=== PATIENT | female | born 1965 | race Caucasian/White ===

== ENCOUNTER 2016-10-27 13:06 | Inpatient (IN) | payer SELFPAY ==
--- NOTE | 2016-10-27 13:31 | PDOC ---
History of Present Illness - General History Source: Patient Exam Limitations: No Limitations - History of Present Illness Initial Comments: 10/27/16 13:35 The patient is a 51 year old female with a significant past medical history of deep vein thrombosis secondary to foot biopsy (01/23-10/24) who presents to the ED with left sided facial drooping for an hour. The patient reports she was getting her hair done when she noticed left sided facial drooping. She also reports left sided arm tingling and palpitations. She reports she took 3 85mg of baby aspirin with no relief. Patient reports she was on Xarelto from 01/23-10/24 secondary to the deep vein thrombosis but has not taken it since. Patient reports she recently traveled to [place] by car. Denies any weakness. Denies slurred speech. Denies changes in gait. Denies any other symptoms. Seen by provider at 13:25 <Kalin Cardoso - Last Filed: 10/27/16 15:05> <Ashu Dill - Last Filed: 10/27/16 15:23> - General Stated Complaint: LT SIDE NUMBNESS Time Seen by Provider: 10/27/16 13:28 Past History <Kalin Cardoso - Last Filed: 10/27/16 15:05> <Ashu Dill - Last Filed: 10/27/16 15:23> - Past Medical History Allergies/Adverse Reactions: Allergies Allergy/AdvReac Type Severity Reaction Status Date / Time No Known Allergies Allergy Verified 10/27/16 13:29 Home Medications: Ambulatory Orders Duloxetine HCl [Cymbalta] 30 mg PO DAILY 10/27/16 Oxycodone HCl [Oxaydo] 7.5 mg PO DAILY 10/27/16 Review of Systems - Review of Systems Able to Perform ROS?: Yes Comments:: 10/27/16 13:35 GENERAL/CONSTITUTIONAL: No fever or chills. No weakness. HEAD, EYES, EARS, NOSE AND THROAT: No change in vision. No ear pain or discharge. No sore throat. CARDIOVASCULAR: + palpitations. No chest pain or shortness of breath. RESPIRATORY: No cough, wheezing, or hemoptysis. GASTROINTESTINAL: No nausea, vomiting, diarrhea or constipation. GENITOURINARY: No dysuria, frequency, or change in urination. MUSCULOSKELETAL: No joint or muscle swelling or pain. No neck or back pain. SKIN: No rash NEUROLOGIC: + facial droop, arm tingling. No headache, vertigo, loss of consciousness ENDOCRINE: No increased thirst. No abnormal weight change. HEMATOLOGIC/LYMPHATIC: No anemia, easy bleeding, or history of blood clots. ALLERGIC/IMMUNOLOGIC: No hives or skin allergy. All Other Systems: Reviewed and Negative <Kalin Cardoso - Last Filed: 10/27/16 15:05> *Physical Exam - Vital Signs Last Vital Signs Temp Pulse Resp BP Pulse Ox 98.4 F 85 17 157/103 97 10/27/16 13:20 10/27/16 13:20 10/27/16 13:20 10/27/16 13:20 10/27/16 13:20 - Physical Exam Comments: 10/27/16 13:35 GENERAL: Awake, alert, and fully oriented, in no acute distress HEAD: No signs of trauma EYES: PERRLA, EOMI, sclera anicteric, conjunctiva clear ENT: Auricles normal inspection, hearing grossly normal, nares patent, oropharynx clear without exudates. Moist mucosa NECK: Normal ROM, supple, no lymphadenopathy, JVD, or masses LUNGS: Breath sounds equal, clear to auscultation bilaterally. No wheezes, and no crackles HEART: Regular rate and rhythm, normal S1 and S2, no murmurs, rubs or gallops ABDOMEN: Soft, nontender, normoactive bowel sounds. No guarding, no rebound. No masses EXTREMITIES: Normal range of motion, no edema. No clubbing or cyanosis. No cords, erythema, or tenderness NEUROLOGICAL:+ little bit of facial asymmetry, left side has a little bit of a droop, left leg is weaker than right. NIS Stroke Scale: 2. Normal speech, normal gait SKIN: Warm, Dry, normal turgor, no rashes or lesions noted. <Kalin Cardoso - Last Filed: 10/27/16 15:05> NIH Stroke Scale - Last Known Well Date/Time & Onset Date Last Known Well: 10/27/16 Time Last Known Well: 12:30 - Initial Evaluation Level of consciousness: Alert Ask patient the month and their age: Answers both correctly Ask patient to open & close eyes; make fist and let go: Obeys both correctly Best gaze (horizontal eye movement): Normal Visual field testing: No visual field loss Facial paresis (Show teeth/raise eyebrows/close eyes tight): Minor paralysis ( flattened nasolabial fold, asymmetry on smiling) Motor Function: Left Arm: Normal Motor Function: Right Arm: Normal (extends arm 90 (or 45) degrees for 10 seconds without drift Motor Function: Left Leg: Drift Motor Function: Right Leg: Normal (extends leg 30 degrees for 5 seconds without drift) Limb Ataxia: No ataxia Sensory(Use pinprick test arms,legs,trunk,face/side to side): Normal Best language (Describe picture, name items, read sentences): No Aphasia Dysarthria (read several words): Normal articulation Extinction and Inattention: No abnormality - Total Score NIH Stroke Scale Score: 2 <Ashu Dill - Last Filed: 10/27/16 15:23> Heart Score/ECG Review #1 10/27/16 14:40 Vent. rate 80 bpm MA interval 144 ms QRS duration 96 ms Normal sinus rhythm with sinus arrhythmia Low voltage QRS cannot rule out anterior infarct, age undetermined <Kalin Cardoso - Last Filed: 10/27/16 15:05> Critical Care Time/MDM Note - Medical Decision Making Note: 10/27/16 14:34 CT/HEAD CT (stroke) Impression: normal CT scan of the head. No evidence of cute intracranial pathology. Reported by: Chun Pereyra 10/27/16 15:05 RAD/CHEST X-RAY PORTABLE Impression: No acute pathology. No comparison studies. Reported by: Marco Alfonso <Kalin Cardoso - Last Filed: 10/27/16 15:05> - Medical Decision Making Note: 10/27/16 15:20 Patient's presentation and exam discussed with Neurology, Dr. Manley, No TPA in this case, with NIH Scale of 2, the risks outweigh the benefits. Case discussed with hospitalist, admit to telemetry. Patient had 3 aspirin at home. <Ashu Dill - Last Filed: 10/27/16 15:23> Discharge Disposition <Kalin Cardoso - Last Filed: 10/27/16 15:05> - Discharge Dispostion Admit: Yes <Ashu Dill - Last Filed: 10/27/16 15:23> - Diagnosis Cerebrovascular accident (CVA) Qualifiers: CVA mechanism: unspecified Qualified Code(s): I63.9 - Cerebral infarction, unspecified - Discharge Dispostion Condition at time of disposition: Unchanged/Unknown
[2016-10-27] MEDS ORDERED: SODIUM CHLORIDE 1,000 ML IV SCH ×2 (13:45→16:30)
[2016-10-27 13:47] LABS: BASOPHIL 0.7 % (0-2.0); EOSINOPHIL 6.1 % (0-4.5); MCH 26.3 pg (25.7-33.7); MCHC 32.3 g/dl (32.0-36.0); MEAN CELL VOLUME 81.3 fl (80-96); MEAN PLT VOLUME 7.9 fl (7.5-11.1); NEUTROPHILS 61.7 % (42.8-82.8); PLATELET COUNT 409 K/MM3 (134-434); RDW 16.8 % (11.6-15.6); WHITE BLOOD COUNT 14.7 K/mm3 (4.0-10.0)
[2016-10-27 14:09] LABS: ANION GAP 9 (8-16); BILIRUBIN,TOTAL 0.2 mg/dL (0.2-1.0); CALCIUM 8.8 mg/dL (8.5-10.1); CHOLESTEROL 185 mg/dL (50-200); CO2 27 mmol/L (21-32); CREATININE 0.6 mg/dL (0.55-1.02); GLUCOSE,RANDOM 103 mg/dL (74-106); SGOT/AST 18 U/L (15-37); SGPT/ALT 18 U/L (12-78); TOT PROT 6.9 g/dl (6.4-8.2)
[2016-10-27 14:11] LABS: ALK PHOS 121 U/L (45-117); TROPONIN I < 0.02 ng/ml (0.00-0.05)
[2016-10-27 14:27] LABS: LDL CHOLESTEROL (ONLY SJRH) 132 mg/dL (5-100)
[2016-10-27 14:35] LABS: INR 1.03 (0.82-1.09); PROTHROMBIN TIME (PATIENT) 11.3 SEC (9.98-11.88)
[2016-10-27 15:38] LABS: URINE APPEARANCE SLCLOUDY; URINE BILIRUBIN NEGATIVE (NEGATIVE); URINE COLOR YELLOW; URINE GLUCOSE (UA) NEGATIVE (NEGATIVE); URINE KETONE NEGATIVE (NEGATIVE); URINE NITRITE POSITIVE (NEGATIVE); URINE PROTEIN NEGATIVE (NEGATIVE); URINE UROBILINOGEN NEGATIVE E.U./dl (0.2-1.0)
[2016-10-27 15:43] LABS: URINE BLOOD 1+ (NEGATIVE); URINE LEUK ESTERASE 1+ (NEGATIVE)
[2016-10-27 15:45] LABS: URINE BACTERIA RARE /hpf (NONE SEEN); URINE MUCUS MANY; URINE RBC 2 /hpf (0-3); URINE WBC 13 /hpf (3-5)
--- NOTE | 2016-10-27 16:44 | PN ---
Teaching Attending Note Name of Resident: Dylan Torres ATTENDING PHYSICIAN STATEMENT I saw and evaluated the patient. I reviewed the resident's note and discussed the case with the resident. I agree with the resident's findings and plan as documented. SUBJECTIVE:51 year old female who is visiting from [place] presents after acute onset of left sided facial droop and left upper extremity numbness that occurred around 11:30 am while she was drying her hair. She reports frontal headache and dizziness. This was preceded by 2 days history of palpitations . She recently drove from [place] to [place] . Denies prior history of CVA or Afib PMH is significant for RLE DVT and benign tibial tumor. She completed 1 year course of Xarelto in 2016 . OBJECTIVE: Vital Signs Temperature 98.4 F 10/27/16 13:20 Pulse Rate 81 10/27/16 14:51 Respiratory Rate 20 10/27/16 14:51 Blood Pressure 123/94 10/27/16 14:51 O2 Sat by Pulse Oximetry (%) 100 10/27/16 14:51 Neuro exam remarkable for flattening of the left nasolabial fold . Motor strength 5/5 b/l CVS - RRR , No MRG RS CTA b/l Abnormal Lab Results 10/27/16 10/27/16 10/27/16 13:40 13:40 15:25 WBC 14.7 H RDW 16.8 H Eosinophils % 6.1 H Alkaline Phosphatase 121 H Albumin 3.0 L Total LDL Cholesterol 132 H HDL Cholesterol 39 L Urine Blood 1+ H Ur Leukocyte Esterase 1+ H ASSESSMENT AND PLAN: 1. Suspected acute CVA - not a candidate for TPA, NIH 2, minimal residual weakness, risk of bleeding overweights benefits . Considering prior history of DVT and palpitations will need to R/O afib and hypercoaguable state . - MRI -ASA -Statins -permissive HTN - Hypercoaguable workup - Echo - telemetry - LE dopplers 2. Leukocytosis- abnormal UA, asympthomatic - ua cultures 3. DVT PPX - Lovenox
--- NOTE | 2016-10-27 18:02 | HP ---
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 She states on friday morning she left from [place] and drove here to [place] and just arrived here early this morning. She states she has been having 2 days of "palpitations and feels like my heart is fluttering". She also states she has been having paresthesias of her fingers for ther past few days also. This morning she woke up around 9Am with a headache. She did have nausea wheich she attributes to the car ride. She denies fevers chilsl chest pain and shortness of breath. In the ED soraya michel was called and NIHSS at the time was 2 and after discussion between the ED and neurology they decided the risks outweigh the benefits for TPA. patient took 3 baby aspirins at home with no relief ER course was notable for: (1)Labs IVF EKG (2)CXR Head CT (3) Recent Travel:2 day acr ride from [place] to [place] PAST MEDICAL HISTORY:bilateral hip osteoarthritis right tibial large cell tumor fibromyalgia morbid obesity right leg DVT was on Xarelto for 9 months stopped 1 year ago on 10/2015 PAST SURGICAL HISTORY:Cholecystectomy 2003 Bitubal ligation 1994 Family History:Denies Allergies No Known Allergies Allergy (Verified 10/27/16 13:29) HOME MEDICATIONS: Home Medications Medication Instructions Recorded Duloxetine HCl [Cymbalta] 30 mg PO DAILY 10/27/16 Oxycodone HCl [Oxaydo] 7.5 mg PO DAILY 10/27/16 REVIEW OF SYSTEMS CONSTITUTIONAL: Absent: fever, chills, diaphoresis, generalized weakness, malaise, loss of appetite, weight change HEENT: Absent: rhinorrhea, nasal congestion, throat pain, throat swelling, difficulty swallowing, mouth swelling, ear pain, eye pain, visual changes CARDIOVASCULAR: Absent: chest pain, syncope, , irregular heart rate, lightheadedness, peripheral edema Present: palpitations RESPIRATORY: Absent: cough, shortness of breath, dyspnea with exertion, orthopnea, wheezing, stridor, hemoptysis GASTROINTESTINAL: Absent: abdominal pain, abdominal distension, vomiting, diarrhea, constipation , melena, hematochezia Present nausea GENITOURINARY: Absent: dysuria, frequency, urgency, hesitancy, hematuria, flank pain, genital pain MUSCULOSKELETAL: Absent: joint swelling, back pain, neck pain Present: myalgia, arthralgia, SKIN: Absent: rash, itching, pallor HEMATOLOGIC/IMMUNOLOGIC: Absent: easy bleeding, easy bruising, lymphadenopathy, frequent infections ENDOCRINE: Absent: unexplained weight gain, unexplained weight loss, heat intolerance, cold intolerance NEUROLOGIC: Absent: dizziness, unsteady gait, seizure, mental status changes, bladder or bowel incontinence present: headache, paresthesias PSYCHIATRIC: Absent: anxiety, depression, suicidal or homicidal ideation, hallucinations. PHYSICAL EXAMINATION Vital Signs - 24 hr 10/27/16 17:08 O2 Sat by Pulse 97 Oximetry (%) GENERAL: Awake, alert, and fully oriented, in no acute distress. HEAD: Normal with no signs of trauma. EYES: Pupils equal, round and reactive to light, extraocular movements intact, sclera anicteric, conjunctiva clear. No lid lag. EARS, NOSE, THROAT: Ears normal, nares patent, oropharynx clear without exudates. Moist mucous membranes. NECK: Normal range of motion, supple without lymphadenopathy, JVD, or masses. LUNGS: Breath sounds equal, clear to auscultation bilaterally. No wheezes, and no crackles. No accessory muscle use. HEART: Regular rate and rhythm, normal S1 and S2 without murmur, rub or gallop. ABDOMEN: Soft, nontender, not distended, normoactive bowel sounds, no guarding, no rebound, no masses. No hepatomegaly or splenomegaly. MUSCULOSKELETAL: Normal range of motion at all joints. No bony deformities or tenderness. No CVA tenderness. NEUROLOGICAL: Cranial nerves II-XII intact. knee jerk and biceps jerk 2+ global muscle strength 5/5 slight let sided nasolabial flattening. PSYCHIATRIC: Cooperative. Good eye contact. Appropriate mood and affect. CXR clear EKG: sinus arrhythmia ASSESSMENT/PLAN: 51F presents to the ED with left sided face weakness now improved. stoke vs TIA Admit to telemetry neurology consult Lipid panel lipitor aspirin MRI/MRA carotid duplex lower extremity duplex to r/o DVT after long car ride Echo permissive hypertension for 24 hours Hypercoagulable work up fibromyalgia: no active issues pain control Large cell tibial tumor: follow up as outpatient Leukocytosis: possible leukomoid reactive/stress reaction abnormal UA send urine culture hold off on antibiotics FEN: NS @ 75ml/hr no electrolyte issues low fat sodium controlled diet PPx: Lovenox no GI PPx indicated Speech and swallow consult Visit type - Emergency Visit Emergency Visit: Yes ED Registration Date: 10/27/16 Care time: The patient presented to the Emergency Department on the above date and was hospitalized for further evaluation of their emergent condition. - New Patient This patient is new to me today: Yes Date on this admission: 10/27/16 - Critical Care Critical Care patient: No
[2016-10-27] MEDS ORDERED: BACLOFEN 10 MG TABLET (FP) PO PRN (22:00)
[2016-10-27] MEDS: DOCUSATE SODIUM 100 MG CAPSULE (FP) PO SCH (22:42)
[2016-10-27] MEDS: ATORVASTATIN CA 80 MG TABLET (FP) PO SCH (22:42)
[2016-10-27] MEDS: oxyCODONE HCL 5 MG TABLET PO PRN (22:43)
[2016-10-28 00:18] VITALS: BMI 43.9
[2016-10-28] MEDS: oxyCODONE HCL 5 MG TABLET PO PRN (06:14)
[2016-10-28 07:06] LABS: BASOPHIL 0.7 % (0-2.0); EOSINOPHIL 6.9 % (0-4.5); MCH 26.2 pg (25.7-33.7); MCHC 32.5 g/dl (32.0-36.0); MEAN CELL VOLUME 80.8 fl (80-96); MEAN PLT VOLUME 7.8 fl (7.5-11.1); NEUTROPHILS 56.5 % (42.8-82.8); PLATELET COUNT 352 K/MM3 (134-434); RDW 16.9 % (11.6-15.6); WHITE BLOOD COUNT 12.5 K/mm3 (4.0-10.0)
[2016-10-28 07:29] LABS: CALCIUM 8.2 mg/dL (8.5-10.1); CREATININE 0.5 mg/dL (0.55-1.02)
[2016-10-28] MEDS: DOCUSATE SODIUM 100 MG CAPSULE (FP) PO SCH ×2 (09:46→21:34)
[2016-10-28] MEDS: ACETAMINOPHEN 325 MG TABLET (FP) PO PRN (09:47)
[2016-10-28] MEDS: DULoxetine HCL 30 MG CAPSULE.DR (FP) PO SCH (09:47)
[2016-10-28] MEDS: ASPIRIN COATED 81 MG TABLET.EC PO SCH (09:47)
[2016-10-28] MEDS: PANTOPRAZOLE 20 MG TABLET (FP) PO SCH (09:47)
[2016-10-28] MEDS: ENOXAPARIN NA (PORCINE) 40 MG/0.4 ML DISP.SYRIN SQ SCH (09:48)
--- NOTE | 2016-10-28 10:16 | CONSULT ---
Admitting History and Physical - Primary Care Physician PCP: Kirsten Lehman - Admission History of Present Illness: Per EMR note: "10/27/16 13:35 The patient is a 51 year old female with a significant past medical history of deep vein thrombosis secondary to foot biopsy (01/23-10/24) who presents to the ED with left sided facial drooping for an hour. The patient reports she was getting her hair done when she noticed left sided facial drooping. She also reports left sided arm tingling and palpitations. She reports she took 3 85mg of baby aspirin with no relief. Patient reports she was on Xarelto from 01/23-10/24 secondary to the deep vein thrombosis but has not taken it since. Patient reports she recently traveled to [place] by car. " Pt reports left facial weakness has varied since admission, from symmetric to mild and that her tongue felt heavy yesterday. History Source: Patient Limitations to Obtaining History: No Limitations - Past Medical History ...LMP: 10/14/16 ...: No - Smoking History Smoking history: Current every day smoker Have you smoked in the past 12 months: Yes Aproximately how many cigarettes per day: 5 History - Admission Reason For Visit: STROKE - Diagnostics X-ray: Report Reviewed CT Scan: Report Reviewed - General Mental Status: Alert and Oriented, Awake and Alert, Able to Follow Commands Attention: Intact Ability to Follow Directions: Good Head/Neck Control: WFL - Hearing Hearing: Functional Hearing: Normal Speech Evaluation - Communication Primary Language: PORTUGUESE Communication: Yes: Within Normal Limits Oral Expression Ability: Yes: No Impairment - Speech Production Able to Make Needs Known: Yes: WNL Intelligibility: Yes: WNL - Speech Characteristics Voice Loudness: Normal Voice Pitch: Yes: Normal Voice Phonatory-based Quality: Yes: Normal Speech Pattern: Normal Speech Clarity: < 100% Nasal Resonance: Normal Articulation: Yes: Precise Rate of Speech: Intact - Language/Auditory Comprehension Follows: Yes: 2 Stage Simple Commands - Language/Verbal Expression Able to Respond to Simple Queries: Yes: WNL Able to Communicate Wants and Needs: Yes: WNL Functional Communication Status: Yes: WNL - Memory/Perception intermediate teacher Memory: Yes: WNL Short Term Memory: Yes: WNL - Swallow Evaluation/Bedside Assessment Current Nutritional Intake: Regular, Thin Liquids Oral Secretions: Yes: WFL Dentition: Yes: Adequate Facial Symmetry at Rest: Symmetrical Facial Symmetry on Retraction: Symmetrical Facial Movement: Controlled Sensation: Normal Against Resistance Opening: Normal Against Resistance Closing: Normal Pucker Lips: Normal Smile: Normal Lingual Movement: Normal, Symmetric Lingual Speed of Movement: Normal Lingual Movement Strgth Against Opposition: Normal Lingual Movement Characteristics: Normal Velopharyngeal Movement: Normal Laryngeal Elevation: WFL Laryngeal Movement: Able to Palpate Rate of Intake: WFL Bolus Size: WFL Chewing: WFL Oral Prep Time: WFL A-P Transit: WFL Pocketing: None Timing of Swallow: WFL Coughing/Throat Clear: No Change in Voice: No Recommendations - Speech Evaluation, Impression/Plan Impression: Speech/swallowing,language intact. No facial assymetry at this time. - Dysphagia Impressions/Plan Swallowing Skills: [facility] Dysphagia Impressions: No Impairment *Silent aspiration: cannot be R/O at bedside - Recommendations Diet Consistency: Regular Medication Administration: Whole with water Liquids: Thin Liquids
--- NOTE | 2016-10-28 11:09 | CONSULT ---
Consult Consult Specialty:: Neurology Reason for Consultation:: Left facial droop - History of Present Illness History of Present Illness: 51 year old woman, with history of fibromyalgia, bilateral hip osteoarthritis, 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 As per patient, she noted yesterday morning migraine headache followed by four - five hours of new onset left facial weakness, associated with paresthesias in both hands. Her symptoms resolved but recurred in the ED for a short period of time. Patient is currently at baseline. 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 NIHSS 0 CT head no acute changes Carotid doppler no significant stenosis - History Source History Provided By: Patient - Past Medical History ...LMP: 10/14/16 ...: No - Smoking History Smoking history: Current every day smoker Have you smoked in the past 12 months: Yes Aproximately how many cigarettes per day: 5 Home Medications - Allergies Allergies/Adverse Reactions: Allergies Allergy/AdvReac Type Severity Reaction Status Date / Time No Known Allergies Allergy Verified 10/27/16 13:29 - Home Medications Home Medications: Ambulatory Orders Baclofen 10 mg PO PRN 10/27/16 Duloxetine HCl [Cymbalta] 30 mg PO DAILY 10/27/16 Morphine Sulfate [Morphine Sulfate ER] 15 tablet PO 10/27/16 Oxycodone HCl [Oxaydo] 7.5 mg PO DAILY 10/27/16 Review of Systems - Review of Systems Neurological: reports: Parasthesia, Other (facial weakness, resolved) Physical Exam Vital Signs: Vital Signs Temperature 97.9 F 10/28/16 08:00 Pulse Rate 76 10/28/16 08:00 Respiratory Rate 18 10/28/16 08:00 Blood Pressure 121/63 10/28/16 08:00 O2 Sat by Pulse Oximetry (%) 96 10/27/16 21:00 Constitutional: Yes: No Distress, Calm Eyes: Yes: Conjunctiva Clear HENT: Yes: Atraumatic, Normocephalic Cardiovascular: Yes: S1, S2 Neurological: Yes: Alert, Oriented, Cran Nerves II-XII Intact ...Motor Strength: WNL Labs: CBC, BMP 10/28/16 05:35 10/28/16 05:35 Assessment/Plan 51 year old woman, with history of fibromyalgia, bilateral hip osteoarthritis, 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 As per patient, she noted yesterday morning migraine headache followed by four - five hours of new onset left facial weakness, associated with paresthesias in both hands. Her symptoms resolved but recurred in the ED for a short period of time. Patient is currently at baseline. 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 Impression Left facial weakness, possible TIA, stroke, migraine variant NIHSS 0 MRI brain, MRA pending CT head no acute changes Carotid doppler no significant stenosis Echocardiogram Continue aspirin and statin hga1c, ldl PT/OT Further recommendations pending MRI brain
--- NOTE | 2016-10-28 13:15 | PN ---
Teaching Attending Note Name of Resident: Dylan Torres ATTENDING PHYSICIAN STATEMENT I saw and evaluated the patient. I reviewed the resident's note and discussed the case with the resident. I agree with the resident's findings and plan as documented. Patient is comfortable with no acute distress, no shortness of breath. Temperature 97.9 F 10/28/16 08:00 Pulse Rate 76 10/28/16 08:00 Respiratory Rate 18 10/28/16 08:00 Blood Pressure 121/63 10/28/16 08:00 O2 Sat by Pulse Oximetry (%) 96 10/27/16 21:00 CBCD WBC 12.5 K/mm3 (4.0-10.0) H 10/28/16 05:35 RBC 3.92 M/mm3 (3.60-5.2) 10/28/16 05:35 Hgb 10.3 GM/dL (10.7-15.3) L 10/28/16 05:35 Hct 31.6 % (32.4-45.2) L 10/28/16 05:35 MCV 80.8 fl (80-96) 10/28/16 05:35 MCHC 32.5 g/dl (32.0-36.0) 10/28/16 05:35 RDW 16.9 % (11.6-15.6) H 10/28/16 05:35 Plt Count 352 K/MM3 (134-434) 10/28/16 05:35 MPV 7.8 fl (7.5-11.1) 10/28/16 05:35 CMP Sodium 141 mmol/L (136-145) 10/28/16 05:35 Potassium 4.0 mmol/L (3.5-5.1) 10/28/16 05:35 Chloride 106 mmol/L (98-107) 10/28/16 05:35 Carbon Dioxide 27 mmol/L (21-32) 10/28/16 05:35 Anion Gap 8 (8-16) 10/28/16 05:35 BUN 11 mg/dL (7-18) 10/28/16 05:35 Creatinine 0.5 mg/dL (0.55-1.02) L 10/28/16 05:35 Creat Clearance w eGFR > 60 (>60) 10/27/16 13:40 Random Glucose 79 mg/dL (74-106) D 10/28/16 05:35 Calcium 8.2 mg/dL (8.5-10.1) L 10/28/16 05:35 Total Bilirubin 0.2 mg/dL (0.2-1.0) 10/27/16 13:40 AST 18 U/L (15-37) 10/27/16 13:40 ALT 18 U/L (12-78) 10/27/16 13:40 Alkaline Phosphatase 121 U/L (45-117) H 10/27/16 13:40 Total Protein 6.9 g/dl (6.4-8.2) 10/27/16 13:40 Albumin 3.0 g/dl (3.4-5.0) L 10/27/16 13:40 CARDIAC ENZYMES Creatine Kinase 64 IU/L (26-192) 10/27/16 13:40 Troponin I < 0.02 ng/ml (0.00-0.05) 10/27/16 13:40 Current Medications Generic Name Dose Route Start Last Admin Trade Name Freq PRN Reason Stop Dose Admin Acetaminophen 650 mg 10/28/16 08:52 10/28/16 09:47 Tylenol - PO 650 mg Q6H PRN Administration FEVER OR PAIN Aspirin 81 mg 10/28/16 10:00 10/28/16 09:47 Ecotrin - PO 81 mg DAILY ELIZABETH Administration Atorvastatin Calcium 80 mg 10/27/16 22:00 10/27/16 22:42 Lipitor - PO 80 mg HS ELIZABETH Administration Baclofen 10 mg 10/27/16 22:00 Lioresal - PO Q8H PRN Docusate Sodium 100 mg 10/27/16 22:00 10/28/16 09:46 Colace - PO 100 mg BID ELIZABETH Administration Duloxetine HCl 30 mg 10/28/16 10:00 10/28/16 09:47 Cymbalta - PO 30 mg DAILY ELIZABETH Administration Enoxaparin Sodium 40 mg 10/28/16 10:00 10/28/16 09:48 Lovenox - SQ 40 mg DAILY ELIZABETH Administration Sodium Chloride 1,000 mls @ 75 mls/hr 10/27/16 16:30 10/27/16 16:35 Normal Saline - IV 75 mls/hr ASDIR ELIZABETH Administration Oxycodone HCl 5 mg 10/27/16 16:22 10/28/16 06:14 Roxicodone - PO 10/28/16 16:21 5 mg Q6H PRN Administration PAIN Pantoprazole Sodium 20 mg 10/28/16 10:00 10/28/16 09:47 Protonix - PO 20 mg DAILY ELIZABETH Administration Home Medications Medication Instructions Recorded Baclofen 10 mg PO PRN 10/27/16 Duloxetine HCl [Cymbalta] 30 mg PO DAILY 10/27/16 Morphine Sulfate [Morphine Sulfate 15 tablet PO 10/27/16 ER] Oxycodone HCl [Oxaydo] 7.5 mg PO DAILY 10/27/16 ASSESSMENT AND PLAN: 51F presents to the ED with left sided face weakness now improved. #Acute TIA vs stroke continue to monitor in telemetry; Hypercoagulable work up is pending ,MRI/MRA-pending carotid duplex no significant stenosis ;lower extremity duplex ordered to r/o DVT ;Patient drove from [place] ;staying in a hotel overnight for 2 days; Echo- pending . Neuro on the case. #Hx of fibromyalgia: stable #Large cell tibial tumor: f/u as an outpatient with ur oncologist #Acute Leukocytosis: improving , possible due to UTI, will monitor # Asymtomatic UTI ; will hold off antibiotics for now DVT px: LOvenox
--- NOTE | 2016-10-28 15:13 | PN ---
Physical Exam: SUBJECTIVE: Patient seen and examined at bedside complained of headache that resolved with tylenol otherwise feels better OBJECTIVE: Vital Signs Period Temp Pulse Resp BP Sys/Gonzalez Pulse Ox Last 24 Hr 97.9 F-98.3 F 63-81 18-20 103-121/52-73 95-97 GENERAL: Awake, alert, and fully oriented, in no acute distress. HEAD: Normal with no signs of trauma. EYES: Pupils equal, round and reactive to light, extraocular movements intact, sclera anicteric, conjunctiva clear. No lid lag. EARS, NOSE, THROAT: Ears normal, nares patent, oropharynx clear without exudates. Moist mucous membranes. NECK: Normal range of motion, supple without lymphadenopathy, JVD, or masses. LUNGS: Breath sounds equal, clear to auscultation bilaterally. No wheezes, and no crackles. No accessory muscle use. HEART: Regular rate and rhythm, normal S1 and S2 without murmur, rub or gallop. ABDOMEN: Soft, nontender, not distended, normoactive bowel sounds, no guarding, no rebound, no masses. No hepatomegaly or splenomegaly. MUSCULOSKELETAL: Normal range of motion at all joints. No bony deformities or tenderness. No CVA tenderness. NEUROLOGICAL: Cranial nerves II-XII intact. knee jerk and biceps jerk 2+ global muscle strength 5/5 nasolabial flattening resolved PSYCHIATRIC: Cooperative. Good eye contact. Appropriate mood and affect. Laboratory Results - last 24 hr 10/28/16 10/28/16 10/28/16 05:35 05:35 05:35 WBC 12.5 H RBC 3.92 Hgb 10.3 L Hct 31.6 L MCV 80.8 MCHC 32.5 RDW 16.9 H Plt Count 352 MPV 7.8 Neutrophils % 56.5 Lymphocytes % 31.1 D Monocytes % 4.8 Eosinophils % 6.9 H Basophils % 0.7 Fibrinogen 414.0 Sodium 141 Potassium 4.0 Chloride 106 Carbon Dioxide 27 Anion Gap 8 BUN 11 Creatinine 0.5 L Random Glucose 79 D Calcium 8.2 L Active Medications Generic Name Dose Route Start Last Admin Trade Name Freq PRN Reason Stop Dose Admin Acetaminophen 650 mg 10/28/16 08:52 10/28/16 09:47 Tylenol - PO 650 mg Q6H PRN Administration FEVER OR PAIN Aspirin 81 mg 10/28/16 10:00 10/28/16 09:47 Ecotrin - PO 81 mg DAILY ELIZABETH Administration Atorvastatin Calcium 80 mg 10/27/16 22:00 10/27/16 22:42 Lipitor - PO 80 mg HS ELIZABETH Administration Baclofen 10 mg 10/27/16 22:00 Lioresal - PO Q8H PRN Docusate Sodium 100 mg 10/27/16 22:00 10/28/16 09:46 Colace - PO 100 mg BID ELIZABETH Administration Duloxetine HCl 30 mg 10/28/16 10:00 10/28/16 09:47 Cymbalta - PO 30 mg DAILY ELIZABETH Administration Enoxaparin Sodium 40 mg 10/28/16 10:00 10/28/16 09:48 Lovenox - SQ 40 mg DAILY ELIZABETH Administration Oxycodone HCl 5 mg 10/27/16 16:22 10/28/16 06:14 Roxicodone - PO 10/28/16 16:21 5 mg Q6H PRN Administration PAIN Pantoprazole Sodium 20 mg 10/28/16 10:00 10/28/16 09:47 Protonix - PO 20 mg DAILY ELIZABETH Administration ASSESSMENT/PLAN: 51F presents to the ED with left sided face weakness now improved. 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 - New Patient This patient is new to me today: No - Critical Care Critical Care patient: No
[2016-10-28] MEDS ORDERED: PT OWN MED DRAWER 7, Y5N ONE (21:29)
[2016-10-28] MEDS: ATORVASTATIN CA 80 MG TABLET (FP) PO SCH (21:34)
[2016-10-29 07:03] LABS: MCH 26.3 pg (25.7-33.7); MCHC 32.6 g/dl (32.0-36.0); MEAN CELL VOLUME 80.5 fl (80-96); MEAN PLT VOLUME 8.1 fl (7.5-11.1); PLATELET COUNT 406 K/MM3 (134-434); RDW 16.8 % (11.6-15.6)
[2016-10-29] MEDS: DULoxetine HCL 30 MG CAPSULE.DR (FP) PO SCH (09:23)
[2016-10-29] MEDS: ENOXAPARIN NA (PORCINE) 40 MG/0.4 ML DISP.SYRIN SQ SCH (09:24)
[2016-10-29] MEDS: ASPIRIN COATED 81 MG TABLET.EC PO SCH (09:24)
[2016-10-29] MEDS: DOCUSATE SODIUM 100 MG CAPSULE (FP) PO SCH (09:24)
[2016-10-29] MEDS: PANTOPRAZOLE 20 MG TABLET (FP) PO SCH (09:24)
--- NOTE | 2016-10-29 10:49 | PN ---
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 As per patient, she noted yesterday morning migraine headache followed by four - five hours of new onset left facial weakness, associated with paresthesias in both hands. Her symptoms resolved but recurred in the ED for a short period of time. Patient is currently at baseline. 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 NIHSS 0 CT head no acute changes Carotid doppler no significant stenosis Echo LV function normal - History Source History Provided By: Patient - Past Medical History ...LMP: 10/14/16 ...: No - Smoking History Smoking history: Current every day smoker Have you smoked in the past 12 months: Yes Aproximately how many cigarettes per day: 5 Home Medications - Allergies Allergies/Adverse Reactions: Allergies Allergy/AdvReac Type Severity Reaction Status Date / Time No Known Allergies Allergy Verified 10/27/16 13:29 - Home Medications Home Medications: Ambulatory Orders Baclofen 10 mg PO PRN 10/27/16 Duloxetine HCl [Cymbalta] 30 mg PO DAILY 10/27/16 Morphine Sulfate [Morphine Sulfate ER] 15 tablet PO 10/27/16 Oxycodone HCl [Oxaydo] 7.5 mg PO DAILY 10/27/16 Review of Systems - Review of Systems Neurological: reports: Parasthesia, Other (facial weakness, resolved) Physical Exam Constitutional: Yes: No Distress, Calm Eyes: Yes: Conjunctiva Clear HENT: Yes: Atraumatic, Normocephalic Cardiovascular: Yes: S1, S2 Neurological: Yes: Alert, Oriented, Cran Nerves II-XII Intact ...Motor Strength: WNL Assessment/Plan 51 year old woman, with history of fibromyalgia, bilateral hip osteoarthritis, 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 As per patient, she noted yesterday morning migraine headache followed by four - five hours of new onset left facial weakness, associated with paresthesias in both hands. Her symptoms resolved but recurred in the ED for a short period of time. Patient is currently at baseline. 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 Impression Left facial weakness, possible TIA, stroke, migraine variant NIHSS 0 CT head no acute changes Carotid doppler no significant stenosis Echocardiogram normal LV function Continue aspirin 81 mg daily Decrease atorvastatin to 40 mg daily hga1c, ldl 132 MRI brain pending
[2016-10-29] MEDS: ACETAMINOPHEN 325 MG TABLET (FP) PO PRN (11:46)
--- NOTE | 2016-10-29 11:56 | PN ---
Progress Note, [employer] - Note Progress Note: No facial asymmetry noted. Pt tolerating diet without signs or symptoms of aspiration. Selected Entries 10/29/16 11:15 Breakfast 100% No further f/u indicated at this time.
[2016-10-29] MEDS ORDERED: ATORVASTATIN CA 40 MG TABLET (FP) PO SCH (13:34)
[2016-10-29 14:20] VITALS: BP 142/70; PULSE 81; TEMP 98.4
--- NOTE | 2016-10-29 15:39 | PN ---
Teaching Attending Note Name of Resident: Dylan Torres ATTENDING PHYSICIAN STATEMENT I saw and evaluated the patient. I reviewed the resident's note and discussed the case with the resident. I agree with the resident's findings and plan as documented. SUBJECTIVE: no fever or chills, no dysuria . no abd apin . OBJECTIVE: NAD CV : RRR Lungs : CTAB ext : david porter Neuro : round equal pupils , reactive to light . nl facial sensation , uvula and tongue at mid line . strength 5/5 in upper and lower ext . sensatio tolight touch nl. 2+ knee jerk and biceps b/l ASSESSMENT AND PLAN: 51 y/o lady with h/o fibromyalgia , who presented with L lower facial drrop . 1- TIA : MRI with no acute infarct . possible 2 small area of microvascular disease. sx resolved. cont statin to goal LDL < 70 cont ASa f/u with neuro as out pt HEDY, echo reviewed. 2- asymptomatic bacteruria : no need fro ABx, despite a positive urine cx , as no sx are detected in this female patient dispo : dc home
--- NOTE | 2016-10-29 15:43 | DS ---
Physical Exam: SUBJECTIVE: Patient seen and examined at bedside feels well wants to go home OBJECTIVE: Vital Signs Period Temp Pulse Resp BP Sys/Gonzalez Pulse Ox Last 24 Hr 97.9 F-985 F 69-81 16-20 101-142/58-70 100-100 PHYSICAL EXAM GENERAL: Awake, alert, and fully oriented, in no acute distress. HEAD: Normal with no signs of trauma. EYES: Pupils equal, round and reactive to light, extraocular movements intact, sclera anicteric, conjunctiva clear. No lid lag. EARS, NOSE, THROAT: Ears normal, nares patent, oropharynx clear without exudates. Moist mucous membranes. NECK: Normal range of motion, supple without lymphadenopathy, JVD, or masses. LUNGS: Breath sounds equal, clear to auscultation bilaterally. No wheezes, and no crackles. No accessory muscle use. HEART: Regular rate and rhythm, normal S1 and S2 without murmur, rub or gallop. ABDOMEN: Soft, nontender, not distended, normoactive bowel sounds, no guarding, no rebound, no masses. No hepatomegaly or splenomegaly. MUSCULOSKELETAL: Normal range of motion at all joints. No bony deformities or tenderness. No CVA tenderness. NEUROLOGICAL: Cranial nerves II-XII intact. knee jerk and biceps jerk 2+ global muscle strength 5/5 nasolabial flattening resolved PSYCHIATRIC: Cooperative. Good eye contact. Appropriate mood and affect. LABS Laboratory Results - last 24 hr 10/29/16 10/29/16 05:35 05:35 WBC 12.0 H RBC 4.16 Hgb 10.9 Hct 33.5 MCV 80.5 MCHC 32.6 RDW 16.8 H Plt Count 406 MPV 8.1 Hemoglobin A1c % 6.1 H HOSPITAL COURSE: Date of Admission:10/27/16 Date of Discharge: 10/29/16 51F history of fibromyalgia morbid obesity large cell tumor of right tibia presented to the ED after she noticed facial droop on the left. She was doing her hair in the mirror when she noticed also noticed her fingers had paresthesias. She just got to [place] after a 2 day car ride from [place]. She was a code michel NIHSS on presentation was a 2 and TPA not given. evaluated by neurology. CT head WNL. Carotid duplex WNL. Speech and swallow eval patient was ok for regular diet. MRI done which did not show an acute infarct. She was started on aspirin and statin. BP well controlled throughout hospital stay and did not need medications to control it. Stable for discharge informed to follow with PMD and adult neurologist in [place] where she will go back home to in 2 days Minutes to complete discharge: 40 Discharge Summary Reason For Visit: STROKE Current Active Problems CVA (cerebral vascular accident) (Acute) Hyperlipidemia (Acute) Transient ischemic attack (TIA) (Acute) Fibromyalgia (Chronic) Large cell carcinoma (Chronic) Condition: Improved - Instructions Diet, Activity, Other Instructions: You likely had what we call a transient ischemic attack or TIA eat a low fat low sodium diet watch your blood pressure take all medications as prescribed you must follow up with a primary care doctor and a adult neurologist and a neurologist you may need a holter monitor or event recorder when you see your adult neurologist if you experience these symptoms again go to the nearest emergency room Disposition: HOME - Home Medications Comprehensive Discharge Medication List: Ambulatory Orders Baclofen 10 mg PO PRN 10/27/16 Duloxetine HCl [Cymbalta] 30 mg PO DAILY 10/27/16 Oxycodone HCl [Oxaydo] 7.5 mg PO DAILY 10/27/16 Aspirin Coated [Ecotrin -] 81 mg PO DAILY 10/29/16 Atorvastatin Ca [Lipitor] 40 mg PO HS #30 tablet 10/29/16 This patient is new to me today: No Emergency Visit: Yes ED Registration Date: 10/27/16 Care time: The patient presented to the Emergency Department on the above date and was hospitalized for further evaluation of their emergent condition. Critical Care patient: No - Discharge Referral Referred to [facility] Med [facility] No
--- NOTE | 2016-10-30 12:45 | EKG ---
Test Reason : Blood Pressure : / mmHG Vent. Rate : 080 BPM Atrial Rate : 080 BPM P-R Int : 144 ms QRS Dur : 096 ms QT Int : 368 ms P-R-T Axes : 069 -29 027 degrees QTc Int : 424 ms NORMAL SINUS RHYTHM WITH SINUS ARRHYTHMIA LOW VOLTAGE QRS CANNOT RULE OUT ANTERIOR INFARCT , AGE UNDETERMINED ABNORMAL ECG NO PREVIOUS ECGS AVAILABLE Confirmed by GEE DIXON MD ([id number]) on 10/30/2016 12:44:35 PM Referred By: Confirmed By:GEE DIXON MD
[2016-10-30 16:07] LABS: PROT S TOTAL 99 % (60-150); PROTEIN C ACTIVITY 94 % (73-180); PROTEIN S, FREE 40 % (57-157)
== END 2016-10-29 17:20 | disposition home or self-care (01) | DRG 47 ==
LOC: JER 13:06 → JERBED 15:35 → J4S 20:29
PROVIDERS: ADMIT Internal Medicine; ATTEND Internal Medicine
DX: G45.8 Other transient cerebral ischemic attacks and related syndromes (principal); E66.01 Morbid (severe) obesity due to excess calories; R82.71 Bacteriuria; Z68.41 Body mass index [BMI] 40.0-44.9, adult; R29.702 NIHSS score 2; M79.7 Fibromyalgia; Z86.718 Personal history of other venous thrombosis and embolism; M16.0 Bilateral primary osteoarthritis of hip; D72.829 Elevated white blood cell count, unspecified; F17.210 Nicotine dependence, cigarettes, uncomplicated
CPT/HCPCS: 36415; 70450-TC; 70551-TC; 71010-TC; 80048; 80053; 81003; 81015; 81240; 82465; 82550; 83036; 83718; 83721; 84478; 84484; 85025; 85027; 85300; 85303; 85305; 85306; 85307; 85384; 85610; 86140; 86850; 86900; 86901; 87086; 87186; 93005; 93010; 93306-TC; 93880-TC; 93970-TC; 97116-GP; 97161-GP; 99285-25; J0475